=== PATIENT | male | born 1965 | race Caucasian/White ===

== ENCOUNTER 2017-12-24 07:14 | Emergency (ER) | payer SELFPAY ==
[2017-12-24 07:31] VITALS: BP 141/82
[2017-12-24] MEDS ORDERED: Ibuprofen TAB* 800 MG PO ONE (08:04)
--- NOTE | 2017-12-24 08:13 | RAD ---
Indication: Right hand pain 2 views of the right hand demonstrates no definite fracture. No foreign body is noted. Deformity of the distal tuft of the third metacarpal is noted. IMPRESSION: No fracture is noted.
[2017-12-24] MEDS ORDERED: Ibuprofen TAB* 400 MG ONE (08:15)
[2017-12-24] MEDS ORDERED: Ibuprofen TAB* 400 MG PO ONE (08:17)
--- NOTE | 2017-12-24 11:26 | UC ---
Genaro Cabrera Nikita, scribed for Ralph Alvares MD on 12/24/17 at 0738 . Hand/Wrist HPI - HPI Summary HPI Summary: This patient is a 52 year old M presenting to [facility] with a chief complaint of R hand pain since 3 days ago. The patient rates the pain 4/10 in severity. Symptoms aggravated by movement or hand use. Symptoms alleviated by nothing. Patient reports heavy lifting and that he works with his hands all day. Patient denies any recent trauma. - History Of Current Complaint Chief Complaint: UCUpperExtremity Stated Complaint: HAND INJURY Time Seen by Provider: 12/24/17 07:15 Hx Obtained From: Patient Onset/Duration: Sudden Onset, Lasting Days Severity Initially: Moderate Severity Currently: Moderate Pain Intensity: 3 Pain Scale Used: 0-10 Numeric Aggravating Factor(s): Movement, Other - hand use Alleviating Factor(s): Nothing Associated Signs And Symptoms: Positive: Other - Patient reports heavy lifting and that he works with his hands all day. Patient denies any recent trauma. - Allergies/Home Medications Allergies/Adverse Reactions: Allergies Allergy/AdvReac Type Severity Reaction Status Date / Time No Known Allergies Allergy Verified 05/09/15 12:16 PMH/Surg Hx/FS Hx/Imm Hx Endocrine History: Other Other Endocrine History: No DM Cardiovascular History: Other Other Cardiovascular History: No HTN, CAD - Surgical History Surgical History: None - Family History Known Family History: Positive: Hypertension - Social History Alcohol Use: Daily Alcohol Amount: 3 beers daily Substance Use Type: None Smoking Status (MU): Current Every Day Smoker Type: Cigars, Smokeless Tobacco Amount Used/How Often: 2 cans/day Length of Time of Smoking/Using Tobacco: 40 years Have You Smoked in the Last Year: Yes Household Exposure Type: Cigars Review of Systems Constitutional: Other - denies fever Musculoskeletal: Other: - R hand pain; Patient reports heavy lifting and that he works with his hands all day. Patient denies any recent trauma. All Other Systems Reviewed And Are Negative: Yes Physical Exam - Summary Physical Exam Summary: VITAL SIGNS: Reviewed. GENERAL: ~Patient is a well-developed and nourished MALE who is lying comfortable in the stretcher. ~Patient is not in any acute respiratory distress. HEAD AND FACE: Normocephalic EYES: PERRLA, EOMI x 2. EARS: Hearing grossly intact. MOUTH: Oropharynx within normal limits. NECK: Supple, trachea is midline, no adenopathy, no JVD, no carotid bruit. CHEST: Symmetric, no tenderness at palpation LUNGS: Clear to auscultation bilaterally. No wheezing or crackles. CVS: Regular rate and rhythm, S1 and S2 present, no murmurs or gallops appreciated. ABDOMEN: Soft, non-tender. Bowel sounds are normal. No abdominal abnormal pulsations. EXTREMITIES: Full ROM in all major joints, no edema, no cyanosis or clubbing. Multiple small abrasions on the hand. NEURO: Alert and oriented x 3. No acute neurological deficits. Speech is normal and follows commands. Neurovascular exam is intact of the R hand. SKIN: Dry and warm Triage Information Reviewed: Yes Vital Signs: Initial Vital Signs Temp 97.9 F 12/24/17 07:27 Pulse 68 12/24/17 07:27 Resp 18 12/24/17 07:27 BP 141/82 12/24/17 07:27 Pulse Ox 97 12/24/17 07:27 Vital Signs Reviewed: Yes Diagnostics - Radiology R hand XR Radiology Interpretation Completed By: Radiologist - No fracture is noted. [facility] physician has reviewed this radiology report. Hand/Wrist Course/Dx - Course Course Of Treatment: This patient is a 52 year old M presenting to [facility] with a chief complaint of R hand pain since 3 days ago. R hand XR reveals no fracture is noted. However, because the patient has multiple abrasions, I will place him on abx to prevent tenosynovitis. He was instructed to see an orthopedic surgeon if the pain continues or if there is more redness. The patient was found to have increased BP in UC. The patient will follow up with PCP for better control of BP. The pt is hemodynamically stable, alert and oriented x3. I discussed all the findings and test results with the patient. The patient will be discharged with instructions to follow up with their PCP. Patient was instructed to return to the urgent care or go to ER immediately if any of the symptoms return or worsens. Plan of care was discussed with the patient, and patient understands and agrees. All questions were answered to patient satisfaction. There were no further complaints or concerns. - Differential Dx/Diagnosis Provider Diagnoses: Third and fourth digits pain, abrasions, r/o tenosynovitis Discharge - Sign-Out/Discharge Documenting (check all that apply): Discharge/Admit/Transfer - Discharge Plan Condition: Stable Disposition: HOME Prescriptions: Cephalexin CAP* [Keflex CAP*] 500 mg PO QID #40 cap Ibuprofen TAB* [Motrin TAB* 800 MG] 800 mg PO Q6H #30 tab Patient Education Materials: Arthralgia (ED) Referrals: Lazarus Chavarria MD [Medical Doctor] - (Follow up with Dr. Chavarria if the pain continues or if there is more redness.) No Primary Care Phys,NOPCP [Primary Care Provider] - 3 Days Additional Instructions: Take medications as instructed Increase your fluid intake Return to the UC if symptoms worsen The documentation as recorded by the Genaro estrella Nikita accurately reflects the service I personally performed and the decisions made by , Ralph Alvares MD.
== END 2017-12-24 08:29 | disposition home or self-care (01) ==
LOC: UCEAST 07:14
DX: M79.641 Pain in right hand (principal); T14.8XXA Other injury of unspecified body region, initial encounter; X50.0XXA Overexertion from strenuous movement or load, initial encounter; X50.9XXA Other and unspecified overexertion or strenuous movements or postures, initial encounter; Y93.89 Activity, other specified; Y92.9 Unspecified place or not applicable; Y99.0 Civilian activity done for income or pay; F17.293 Nicotine dependence, other tobacco product, with withdrawal; F17.220 Nicotine dependence, chewing tobacco, uncomplicated
CPT/HCPCS: 99212; A9270-GY; G0463